=== PATIENT | female | born 1945 | race Caucasian/White ===

== ENCOUNTER 2017-05-24 11:11 | Emergency (ER) | payer MEDICARE, MEDICAID ==
[2017-05-24 11:27] VITALS: BP 115/61
--- NOTE | 2017-05-24 11:46 | EDM.PDOC ---
ED HPI GENERAL MEDICAL PROBLEM - General Chief Complaint: General Stated Complaint: TRACH TUBE LOOSE Time Seen by Provider: 05/24/17 11:30 Source of Information: Reports: Patient History Limitations: Reports: No Limitations - History of Present Illness INITIAL COMMENTS - FREE TEXT/NARRATIVE: 71-year-old female brought in by ambulance when she accidentally pulled her out her tracheostomy. She has no respiratory distress. Onset: Sudden Duration: Hour(s): (Within the last few hours) - Related Data Allergies Allergy/AdvReac Type Severity Reaction Status Date / Time No Known Allergies Allergy Verified 03/16/15 17:39 Home Meds: Home Meds Albuterol [Proventil Neb Soln] 3 ml IN QID 03/16/15 [History] Multivitamin [Multivitamins] 1 each PO DAILY 03/16/15 [History] Omega3,5,6,7,9 No.1/[place] Oil [Complete Debary Softgel] 1 mg PO DAILY 03/16/15 [ History] atorvaSTATin [Lipitor] 20 mg PO BEDTIME 03/16/15 [History] Aspirin 325 mg PO DAILY 03/12/16 [History] Donepezil [Aricept] 5 mg PO BEDTIME 03/12/16 [History] Ubidecarenone [Coenzyme Q10] 100 mg PO DAILY 03/12/16 [History] Levofloxacin [Levaquin] 500 mg PO Q24H #7 tablet 03/15/16 [Rx] Past Medical History Cardiovascular History: Reports: High Cholesterol Respiratory History: Reports: Asthma, Sleep Apnea Other Respiratory History: tracheostomy 99 Genitourinary History: Reports: Urinary Incontinence 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 Oncologic (Cancer) History: Reports: Breast - Past Surgical History Female Surgical History: Reports: Hysterectomy, Mastectomy Oncologic Surgical History: Reports: Mastectomy Social & Family History - Tobacco Use Smoking Status *Q: Never Smoker Second Hand Smoke Exposure: No - Caffeine Use Caffeine Use: Reports: None - Recreational Drug Use Recreational Drug Use: No ED ROS GENERAL - Review of Systems Review Of Systems: See Below Constitutional: Denies: Fever, Chills Respiratory: Denies: Shortness of Breath Cardiovascular: Denies: Chest Pain GI/Abdominal: Denies: Nausea, Vomiting ED EXAM, GENERAL - Physical Exam Exam: See Below Exam Limited By: No Limitations General Appearance: Alert, No Apparent Distress Head: Atraumatic Neck: Other (Tracheostomy tube was patent) Respiratory/Chest: No Respiratory Distress, Lungs Clear Cardiovascular: Regular Rate, Rhythm Course - Vital Signs Last Recorded V/S: Last Vital Signs Temp 98.2 F 05/24/17 11:26 Pulse 51 L 05/24/17 11:26 Resp 16 05/24/17 11:26 BP 115/61 05/24/17 11:26 Pulse Ox 95 05/24/17 11:26 - Re-Assessments/Exams Free Text/Narrative Re-Assessment/Exam: 05/24/17 11:45 Dr. Villegas was consulted to replace the tracheostomy. 05/24/17 11:54 Tracheostomy was replaced by surgery without complications. Patient was discharged. Departure - Departure Time of Disposition: 12:04 Disposition: Home, Self-Care 01 Condition: Good Clinical Impression: Tracheostomy complication Qualifiers: Tracheostomy complication: other Qualified Code(s): J95.09 - Other tracheostomy complication - Discharge Information Instructions: How to Clean a Stoma and Replace Tracheostomy Ties, Adult, Tracheostomy, Care After Referrals: PCP,None [Primary Care Provider] - Forms: ED Department Discharge Care Plan Goals: Continue current cares, medications without change.
--- NOTE | 2017-05-25 08:11 | OR ---
DATE OF PROCEDURE: 05/24/2017 PREOPERATIVE DIAGNOSIS: 6-Shiley non-fenestrated trach is out. POSTOPERATIVE DIAGNOSIS: 6-Shiley non-fenestrated trach is out. PROCEDURE: Placement of a 6-Shiley fenestrated trach. ANESTHESIA: None. INDICATION: This 71-year-old, white female has had a tracheostomy in place for some time. She was doing her hair this morning when it fell out, they brought her into the hospital to have it put back in. The existing one has been used for many months, we should put a new one in. She and her daughter gave their informed consent to proceed with putting in a new trach. DESCRIPTION OF PROCEDURE: A 6-Shiley fenestrated, non-cuffed trach, some lubricant was placed on the end of it. The trach was then placed in through the tracheostomy opening down into the trachea, it was then anchored with the tie provided around her neck. She tolerated the procedure well. We do not have any non-fenestrated trach, they said they will request, we ordered one for changing into a non-fenestrated trach. Rosas Villegas MD /[id number]
== END 2017-05-24 12:04 | disposition home or self-care (01) ==
LOC: JP.ED 11:11
DX: J95.09 Other tracheostomy complication (principal); E78.00 Pure hypercholesterolemia, unspecified; Z79.899 Other long term (current) drug therapy; Z79.82 Long term (current) use of aspirin
CPT/HCPCS: 99283; 99284